=== PATIENT | female | born 1985 | race African-American/Black ===

== ENCOUNTER 2017-10-20 11:55 | Emergency (ER) | payer OTHER ==
[~2017-10-20] VITALS: Ht 165.1 cm; Wt 79.4 kg
[2017-10-20 12:41] VITALS: BP 137/84
--- NOTE | 2017-10-20 12:48 | Emergency Room Report ---
History of Present Illness General Chief Complaint: Upper Respiratory Illness Source: Patient Present Illness HPI 32-year-old female presents emergency department complaining of persistent cough times one week with new onset of moderate sputum production and nasal congestion. she also reports 7/10 in severity sore throat. Patient states cough is worse at night and she notices her nasal congestion is also worse at night. Patient denies fevers, body aches, neck pain or stiffness, headaches, recent travel or ill contacts. She denies history of asthma or COPD denies smoking.Denies CP, Palpitations, LOC, AMS, dizziness, Changes in Vision, Sensation, paresthesias, or a sudden severe headache. Allergies: Coded Allergies: No Known Allergies (Unverified , 10/20/17) Patient History Past Medical History: see triage record Past Surgical History: none Pertinent Family History: none Last Menstrual Period: 10/17/17 Now: No Reviewed Nursing Documentation: PMH: Agreed; PSxH: Agreed Nursing Documentation-PMH Past Medical History: No Stated History Review of Systems All Other Systems: negative except mentioned in HPI Physical Exam Vital Signs Date Time Temp Pulse Resp B/P (MAP) Pulse Ox O2 Delivery O2 Flow Rate FiO2 10/20/17 12:22 99.0 81 19 137/84 97 Room Air 99.0 Sp02 EP Interpretation: reviewed, normal General Appearance: no apparent distress, alert, GCS 15, non-toxic Head: normocephalic, atraumatic Eyes: bilateral eye normal inspection, bilateral eye PERRL ENT: hearing grossly normal, normal pharynx, normal voice, TMs + canals normal , uvula midline, moist mucus membranes, nasal congestion Neck: full range of motion Respiratory: chest non-tender, lungs clear, normal breath sounds, no rhonchi, no respiratory distress, speaking full sentences, wheezing Cardiovascular #1: regular rate, rhythm Musculoskeletal: back normal, gait/station normal, normal range of motion, non- tender Neurologic: alert, oriented x3, responsive, motor strength/tone normal, sensory intact, normal gait, speech normal, grossly normal Psychiatric: judgement/insight normal Skin: normal color, no rash, warm/dry, well hydrated Lymphatic: no adenopathy Medical Decision Making PA Attestation Dr. aguiar is my supervising Physician whom patient management has been discussed with. Diagnostic Impression: Primary Impression: Acute wheezy bronchitis ER Course 32-year-old female presents emergency department complaining of persistent cough times one week with new onset of moderate sputum production and nasal congestion. she also reports 7/10 in severity sore throat. Patient states cough is worse at night and she notices her nasal congestion is also worse at night. Patient denies fevers, body aches, neck pain or stiffness, headaches, recent travel or ill contacts. She denies history of asthma or COPD denies smoking.Denies CP, Palpitations, LOC, AMS, dizziness, Changes in Vision, Sensation, paresthesias, or a sudden severe headache. Ddx considered but are not limited to URI, pneumonia, PE, strep pharyngitis, meningitis. Vital signs: Pt.is afebrile VS are WNL H&PE are most consistent with bronchitis ORDERS: none required at this time, the diagnosis is clinical ED INTERVENTIONS: None required at this time. DISCHARGE: At this time pt. is stable for d/c to home. Will provide printed patient care instructions, and any necessary prescriptions. Care plan and follow up instructions have been discussed with the patient prior to discharge. Last Vital Signs Date Time Temp Pulse Resp B/P (MAP) Pulse Ox O2 Delivery O2 Flow Rate FiO2 10/20/17 12:22 99.0 81 19 137/84 97 Room Air 99.0 Disposition: HOME, SELF-CARE Condition: Stable Scripts Ibuprofen* (MOTRIN*) 600 Mg Tablet 600 MG ORAL THREE TIMES A DAY, #20 TAB 0 Refills Prov: Lela Dumont 10/20/17 Guaifenesin (Guaifenesin) 1,200 Mg Tab.er.12h 1200 MG PO BID, #10 TAB Prov: Lela Dumont 10/20/17 Benzonatate* (TESSALON PERLE*) 100 Mg Capsule 100 MG ORAL THREE TIMES A DAY, #21 PERLE Prov: Lela Dumont 10/20/17 Codeine/Promethazine Hcl* (PROMETHAZINE-CODEINE SYRUP*) 118 Ml Syrup 5 ML ORAL Q6H PRN for For Cough, #120 ML 0 Refills Prov: Lela Dumont 10/20/17 Albuterol Sulfate* (ALBUTEROL SULFATE MDI*) 8.5 Gm Hfa.aer.ad 2 PUFF INH Q4H, #1 INH 0 Refills Prov: Lela Dumont 10/20/17 Departure Forms: Return to Work Return to Work Date: Oct 24, 2017 Work Restrictions: None Other Restrictions: may return sooner if symptoms resolve. Return to Full Activity: Sep 26, 2017 Patient Instructions: Cough, Adult, [id number] Additional Instructions: Take medications as directed. Follow up with a Primary Care Provider in 3-5 days, even if your symptoms have resolved. --Please review list of primary care clinics, if you do not already have a primary care provider Return sooner to ED if new symptoms occur, or current symptoms become worse. Do not drink alcohol, drive, or operate heavy machinery while taking Cough Syrup as this may cause drowsiness. - Please note that this Emergency Department Report was dictated using [employer] technology software, occasionally this can lead to erroneous entry secondary to interpretation by the dictation equipment. Lela Dumont Oct 20, 2017 12:48
[2017-10-20] MEDS ORDERED: GUAIFENESIN1200 MG PO (12:50)
[2017-10-20] MEDS ORDERED: PROMETHAZINE-C118 M1 ORAL (12:50)
[2017-10-20] MEDS ORDERED: IBUPROFEN600 MG ORAL (12:50)
[2017-10-20] MEDS ORDERED: TESSALON PERLE100 MG ORAL (12:50)
[2017-10-20] MEDS ORDERED: ALBUTEROL SULF8.5 GM INH (12:50)
[2017-10-20 12:55] VITALS: BP 137/84
== END 2017-10-20 12:55 | disposition home or self-care (01) ==
LOC: EMR 12:37
DX: J20.9 Acute bronchitis, unspecified (principal)
CPT/HCPCS: 99284